=== PATIENT | male | born 1950 | race Caucasian/White ===

== ENCOUNTER 2021-06-28 18:15 | Emergency (ER) | payer OTHER ==
[~2021-06-28] VITALS: Ht 185.4 cm; Wt 99.8 kg
--- NOTE | 2021-06-28 19:45 | NUR ---
NO BEDS AVAILABLE IN THE ER. PLACED IN HALLWAY.
--- NOTE | 2021-06-28 21:10 | NUR ---
DR SHELLEY INTO EVAL PATIENT.
[2021-06-28] MEDS ORDERED: ACET-2605 PO (21:29)
[2021-06-28] MEDS ORDERED: CYCL5TAB PO (21:29)
--- NOTE | 2021-06-28 21:41 | NUR ---
Patient discharged to home in stable condition. Written and verbal after care instructions given. Patient verbalizes understanding of instructions. Stressed follow up or return to ER for worsening s/s.
[2021-06-28 21:43] VITALS: BP 140/60
== END 2021-06-28 21:45 | disposition home or self-care (01) ==
LOC: ER 18:26
DX: M54.2 Cervicalgia (principal); M54.9 Dorsalgia, unspecified; M79.18 Myalgia, other site; E78.5 Hyperlipidemia, unspecified
CPT/HCPCS: A4663